=== PATIENT | female | born 1945 | race Caucasian/White ===

== ENCOUNTER 2021-10-08 04:02 | Day surgery (SDC) | payer OTHER, BC ==
[2021-10-07 10:18] VITALS: BMI 45.1
[2021-10-08] MEDS ORDERED: LIDOCAINE HCL/PF 1% SDV 5ML VIAL ONE (07:30)
[2021-10-08] MEDS ORDERED: LIDOCAINE HCL/PF 2% SDV 5ML VIAL ONE (07:38)
[2021-10-08] MEDS ORDERED: LIDOCAINE HCL 1% PRESERVATIVE FREE - 30ML VIAL IJ ONE (08:19)
[2021-10-08 10:11] VITALS: BP 154/82; PULSE 62; TEMP 97.4
== END 2021-10-08 09:55 | disposition home or self-care (01) ==
LOC: JASU-SURG 04:02
PROVIDERS: ATTEND Pain Medicine Pain Medicine
PROC: 01HY3MZ Insertion of Neurostimulator Lead into Peripheral Nerve, Percutaneous Approach (ICD-10-PCS; principal; 2021-10-08 08:15)
DX: G89.4 Chronic pain syndrome (principal); M25.569 Pain in unspecified knee
CPT/HCPCS: 64555; C1778

== ENCOUNTER 2022-01-14 05:21 | Day surgery (SDC) | payer OTHER, BC ==
[2022-01-12 17:45] VITALS: BMI 37.9
[2022-01-14] MEDS ORDERED: LIDOCAINE HCL/PF 1% SDV 5ML VIAL ONE (07:10)
[2022-01-14] MEDS ORDERED: DEXAMETHASONE SOD PHOSPHATE 10 MG/1 ML VIAL ONE (07:31)
[2022-01-14] MEDS ORDERED: BUPIVACAINE HCL/PF 0.25% (2.5MG/ML) 10 ML VIAL ONE (08:15)
[2022-01-14] MEDS ORDERED: LIDOCAINE 1% P/F 10 MG/ML VIAL INF ONE ×2 (08:22)
[2022-01-14] MEDS ORDERED: LIDOCAINE HCL 1% PRESERVATIVE FREE - 30ML VIAL IJ ONE ×3 (08:23→08:35)
[2022-01-14] MEDS ORDERED: BUPIVACAINE HCL/PF 0.25% (2.5MG/ML) 10 ML VIAL IJ ONE ×3 (08:24→08:35)
[2022-01-14 10:41] VITALS: BP 142/67; PULSE 71; RESP 18; TEMP 98.9
== END 2022-01-14 10:55 | disposition home or self-care (01) ==
LOC: JASU-SURG 05:21
PROVIDERS: ATTEND Pain Medicine Pain Medicine
PROC: 01HY3MZ Insertion of Neurostimulator Lead into Peripheral Nerve, Percutaneous Approach (ICD-10-PCS; principal; 2022-01-14 08:00)
DX: G89.4 Chronic pain syndrome (principal)
CPT/HCPCS: 64555; C1897; J1100

== ENCOUNTER 2023-04-07 04:02 | Day surgery (SDC) | payer OTHER, BC ==
[2023-04-05 14:03] VITALS: BMI 35.2
[~2023-04-07 04:02] MED LIST: BUPIVACAINE HCL/PF 0.75% 10 ML VIAL PNB ONE; DEXAMETHASONE SOD PHOSPHATE 10 MG/1 ML VIAL IM ONE; LIDOCAINE HCL 1% PRESERVATIVE FREE - 30ML VIAL IJ ONE; LIDOCAINE HCL 2% (50ML VIAL) INF ONE
[2023-04-07] MEDS ORDERED: LIDOCAINE HCL/PF 2% SDV 5ML VIAL ONE (07:21)
[2023-04-07] MEDS ORDERED: LIDOCAINE HCL/PF 1% SDV 5ML VIAL ONE (07:22)
[2023-04-07] MEDS ORDERED: BUPIVACAINE HCL/PF 0.75% 10 ML VIAL ONE (07:22)
[2023-04-07] MEDS ORDERED: DEXAMETHASONE SOD PHOSPHATE 10 MG/1 ML VIAL ONE (07:22)
[2023-04-07 09:22] VITALS: RESP 20; TEMP 97.8
[2023-04-07] MEDS ORDERED: LIDOCAINE HCL 2% (50ML VIAL) INF ONE (10:03)
[2023-04-07] MEDS ORDERED: ACETAMINOPHEN 500 MG TABLET (FP) ONE (10:53)
[2023-04-07 12:26] VITALS: BP 128/78; PULSE 76
[2023-04-07] MEDS ORDERED: ACETAMINOPHEN 500 MG TABLET (FP) PO PRN (14:04)
== END 2023-04-07 12:10 | disposition home or self-care (01) ==
LOC: JASU-SURG 04:02
PROVIDERS: ATTEND Pain Medicine Pain Medicine
PROC: 015 Peripheral Nervous System, Destruction (ICD-10-PCS; principal; 2023-04-07 09:30)
DX: M25.561 Pain in right knee (principal)
CPT/HCPCS: J1100